=== PATIENT | female | born 2000 | race Caucasian/White ===

== ENCOUNTER 2022-06-16 18:56 | Emergency (ER) | payer BC, OTHER ==
[~2022-06-16] VITALS: Ht 170 cm; Wt 87.0 kg
[2022-06-16 20:09] VITALS: BP 149/76
--- NOTE | 2022-06-16 20:11 | ED Upper Extremity ---
General Chief Complaint: Laceration Stated Complaint: PUNCTURE WOUND/THUMB,INDEX AND MIDDLE FINGER NUMB Source: patient Exam Limitations: no limitations (NEELAM SHARMA APRN) History of Present Illness Date Seen by Provider: Jun 16, 2022 Time Seen by Provider: 20:10 Initial Comments Patient is a previously healthy 21-year-old female who presents to the emergency department after accidentally stabbing herself in the left hand with a knife while cooking just prior to arrival. Patient denies any numbness/tingling/inability to fully flex and extend the digits of her left hand. She endorses some pain in the area of the wound itself. She is unsure of the date of her last tetanus immunization. She states the wound began bleeding immediately but she rinsed it under running water and the wound was hemostatic shortly thereafter. There is no bleeding noted on my exam. Pain/Injury Location: left hand (NEELAM SHARMA APRN) Allergies and Home Medications Allergies Coded Allergies: azithromycin (Verified Allergy, Mild, Rash, 06/16/22) Patient Home Medication List Home Medication List Reviewed: Yes (NEELAM SHARMA APRN) Amoxicillin/Potassium Clav (Amox Tr-K Clv 875-125 mg Tab) 875 Mg-125 Mg Tablet, 1 EACH PO BID Prescribed by: Neelam Sharma on 06/16/222108 Review of Systems Constitutional: no symptoms reported EENTM: no symptoms reported Respiratory: no symptoms reported Cardiovascular: no symptoms reported Gastrointestinal: no symptoms reported Genitourinary: no symptoms reported Musculoskeletal: see HPI Skin: see HPI Psychiatric/Neurological: No Symptoms Reported (NEELAM SHARMA APRN) Physical Exam Vital Signs Vital Signs - First Documented 06/16/22 20:09 Temp 36.9 Pulse 102 Resp 18 B/P (MAP) 149/76 (100) Pulse Ox 98 O2 Delivery Room Air (SARBJIT,ZOILA K DO) Vital Signs Capillary Refill : (NEELAM SHARMA APRN) Height, Weight, BMI Height: '" Weight: lbs. oz. kg; BMI Method: General Appearance: WD/WN, no apparent distress HEENT: PERRL/EOMI, normal ENT inspection, TMs normal, pharynx normal Neck: non-tender, full range of motion, supple, normal inspection Cardiovascular: regular rate, rhythm Respiratory: chest non-tender, lungs clear, normal breath sounds, no respiratory distress, no accessory muscle use Gastrointestinal: normal bowel sounds, non tender, soft Neurologic/Psychiatric: developer automatic II-XII nml as tested, no motor/sensory deficits, alert 1 cm laceration noted to the palmar aspect of the left hand; wound is hemostat ic; no evidence of any flexor tendon dysfunction on exam; neurovascular status of the distal digits of the left hand is intact; no palpable or visual foreign bodies noted in the wound (NEELAM SHARMA APRN) Progress/Results/Core Measures Progress Progress Note : Progress Note Patient is nontoxic and well-hydrated on exam. Tetanus was updated. Exam of the wound is reassuring. There is no evidence of any damage to any vital structures. Due to wound being a puncture and relatively small in size, I have elected to not close the wound with sutures. Patient was given ibuprofen and LAT was applied to the wound prior to it being irrigated for pain control. Risk of infection in this wound is overall low, however, I will provide a very short course of Augmentin for prophylaxis given this is a puncture to the palmar aspect of the hand. Signs of infection discussed with patient. Return precautions for urgent symptomology discussed. Follow-up with PCP as needed. Patient verbalized understanding. (NEELAM SHARMA APRN) Departure Impression Primary Impression: Laceration of left hand Qualified Codes: S61.412A - Laceration without foreign body of left hand, initial encounter Disposition: 01 HOME, SELF-CARE Condition: Stable Departure-Patient Inst. Decision time for Depature: 21:05 (NEELAM SHARMA APRN) Referrals: NO,LOCAL PHYSICIAN (PCP/Family) Primary Care Physician Patient Instructions: Taking Care of Cuts, Scrapes, and Puncture Wounds Scripts Amoxicillin/Potassium Clav (Amox Tr-K Clv 875-125 mg Tab) 875 Mg-125 Mg Tablet 1 EACH PO BID for 3 Days, #6 TAB 0 Refills Prov: NEELAM SHARMA APRN 06/16/22 ATTENDING PHYSICIAN NOTE: I WAS PHYSICALLY PRESENT ER PHYSICIAN, BUT I WAS NOT INVOLVED IN ANY DECISION MAKING OR ANY CARE OF THIS PATIENT, AND I AM NOT COLLABORATING PHYSICIAN. (ZOILA SCHAFFER DO) NEELAM SHARMA APRN Jun 16, 2022 20:11 ZOILA SCHAFFER DO Jun 18, 2022 02:51
[2022-06-16] MEDS ORDERED: TETANUS,DIPTH,PERTUSS P/F (BOOSTRIX) 0.5 ML VIAL IM ONE (20:15)
[2022-06-16] MEDS ORDERED: IBUPROFEN 600 MG (MOTRIN) TAB PO ONE (20:15)
[2022-06-16] MEDS ORDERED: L.E.T. SOLUTION 3 ML SYR TOP ONE (20:15)
[2022-06-16] MEDS ORDERED: AMOX1TAB12 PO (21:09)
== END 2022-06-16 21:19 | disposition home or self-care (01) ==
LOC: ER 18:59
DX: S61.412A Laceration without foreign body of left hand, initial encounter (principal); Z88.1 Allergy status to other antibiotic agents; Z23 Encounter for immunization; W26.0XXA Contact with knife, initial encounter; Y93.G3 Activity, cooking and baking
CPT/HCPCS: 90715; 99281